=== PATIENT | male | born 1960 | race Caucasian/White ===

== ENCOUNTER 2017-05-06 22:31 | Emergency (ER) | payer BC ==
--- NOTE | ~2017-05-06 | OR ---
Unit #: [id number] #: [id number] Patient: ANDREA EDMONDS [id number] [address] [place], [place] [address] [id number]#: [id number] NAME: ANDREA EDMONDS ROOM: Date of Procedure: 05/06/2017 Admission Date: 05/06/2017 Surgeon: Mikal Palomino Jr., M.D. : 1960 Primary Care Physician: Camilo Coleman M.D. OPERATIVE REPORT INDICATIONS FOR PROCEDURE The patient is a 56-year-old white male, who presents desiring screening colonoscopy. He has had no previous colonoscopy. He has had no change in bowel habits. He has had his prep at home. He understands the procedure including the risks, including that of perforation and bleeding, and consents. PREOPERATIVE DIAGNOSIS Desired screening colonoscopy. POSTOPERATIVE DIAGNOSIS Poor prep with an elongated colon, but no other specific abnormalities. ANESTHESIA MAC anesthesia. PROCEDURE PERFORMED Flexible colonoscopy to the cecum. DESCRIPTION OF PROCEDURE The patient was positioned in Zepeda position with left side down. After being given MAC anesthesia, digital rectal examination was performed, which revealed no palpable mass or tenderness. No blood or stool within the rectal ampulla. Prostate was normal by palpation. The Olympus colonoscope was advanced through the anal canal up the rectum and retroflexed down to the area of the anorectal region. There was no evidence of any fissures and no significant internal hemorrhoids. The scope was then straightened and advanced up in the rectosigmoid and sigmoid area and then into the descending colon around the splenic flexure and the transverse colon. Numerous external pressure points were pressed to allow for passage of the scope around this area. The scope was then advanced around the hepatic flexure and ascending colon down in the area of the cecum. The light from the tip of the scope could be seen transilluminating through right lower quadrant abdominal wall area. Multiple attempts in advancing the scope up the distal ileum were unsuccessful. The scope was slowly removed. There was liquid stool throughout the entire length of the colon and attempts were made to remove as much of this possible, but the liquid stool could obscure polyp or other abnormality. The scope was then removed. There were no tumors, polyps, cancer, or AVMs. No evidence of any colitis or diverticulosis or diverticulitis. The caliber of the colon appeared normal throughout. The scope was removed. The patient tolerated the procedure well and Unit #: [id number] #: [id number] Patient: ANDREA EDMONDS discharged in satisfactory condition. Dictated by... Mikal Palomino Jr., MNeeru. CARLOS/oksana TD: 05/07/2017 03:55 JOB #: [id number] OPERATIVE REPORT Page 1 of 1 X Mikal Palomino MD X PROCEDURE OPERATIVE NOTE
== END 2017-05-06 23:41 | disposition left against medical advice (07) ==
LOC: CED 22:31
DX: Z53.21 Procedure and treatment not carried out due to patient leaving prior to being seen by health care provider (principal)

== ENCOUNTER → 2017-05-06 | Day surgery (SDC) | payer BC ==
[~2017-05-06] MED LIST: NO MEDICATIONS; SAXENDA3 MG/0.5 M SUBQ
== END | disposition home or self-care (01) ==
LOC: COPS 05:38
DX: Z12.11 Encounter for screening for malignant neoplasm of colon (principal); E66.9 Obesity, unspecified; Z68.36 Body mass index [BMI] 36.0-36.9, adult; Z98.890 Other specified postprocedural states; Z83.3 Family history of diabetes mellitus
CPT/HCPCS: J2250